=== PATIENT | male | born 1970 | race American Indian/Alaskan Native ===

== ENCOUNTER 2017-10-26 08:22 | Day surgery (SDC) | payer MEDICAID ==
[~2017-10-26 08:22] MED LIST: NACL 0.9% 1000 ML 1,000 ML IV SCH
--- NOTE | 2017-10-26 09:19 | Short Stay Summary ---
Short Stay Documentation Date of service: 10/26/17 Narrative H&P: 47 year old for colonoscopy for high risk screening in view of family history of colon polyps. No prior colonoscopy. Additional complaint: abdominal pain not explained by 09/21/17 CT scan. - History Principal diagnosis: high risk colon screening, family history colon polyps Past Medical History: GERD, other (cerebral palsy) Past Surgical History: total hip replacement - Allergies and Medications Current Medications: Allergies No Known Allergies Allergy (Verified 10/23/17 16:48) Home Medications Medication Instructions Recorded Confirmed Last Taken Type RX: Omeprazole 40 mg PO DAILY 10/23/17 10/26/17 3 Days Ago History ~10/23/17 40 Ranitidine HCl 150 mg PO BID 10/26/17 10/26/17 10/23/17 History Active Medications Sodium Chloride (Nacl 0.9% 1000 Ml) 1,000 mls @ 50 mls/hr IV DIRECT DUGLAS Last Admin: 10/26/17 08:57 Dose: 50 mls/hr - Physical exam General appearance: no acute distress, well-nourished HEENT: PERRLA, EOMI Lungs: Clear to auscultation Heart: Normal S1, Normal S2 Gastrointestinal: normal Extremities: abnormal (flexion contractures, muscle wasting) Neurological: Normal speech (mild dysarthria) - Hospital course Hospital course: Uneventful colonoscopy - Disposition Condition at discharge: Good Disposition: DC-01 TO HOME OR SELFCARE - Discharge Diagnoses (1) Family history of colonic polyps Status: Acute (2) Internal hemorrhoids Status: Acute Short Stay Discharge Plan Activity: other (no driving today) Diet: other (resume usual) Additional Instructions: Repeat colonoscopy in 5 years for screening Follow up with: DONTRELL WILDER MD [Primary Care Provider] - 7 Days
[2017-10-26] MEDS ORDERED: DIPRIVAN 10 MG/ML IV ONE (10:18)
[2017-10-26] MEDS ORDERED: XYLOCAINE 1% 20 mL ONE (10:18)
--- NOTE | 2017-10-26 10:22 | Anesthesia Consultation ---
Anesthesia Consult and Med Hx Date of service: 10/26/17 - Airway Anesthetic Teeth Evaluation: Good ROM Head & Neck: Adequate Mental/Hyoid Distance: Adequate Mallampati Class: Class IV Intubation Access Assessment: Possibly Difficult - Pulmonary Exam CTA: Yes - Cardiac Exam Cardiac Exam: RRR - Pre-Operative Health Status ASA Pre-Surgery Classification: ASA2 Proposed Anesthetic Plan: MAC - Central Nervous System Hx Neuromuscular Disorder: Yes (Cerebral Palsy ) - Gastrointestinal Hx Gastroesophageal Reflux Disease: Yes
--- NOTE | 2017-10-26 10:23 | Anesthesia Day of Surgery ---
Anesthesia Day of Surgery - Day of Surgery Patient Examined: Yes Patient H&P Reviewed: Yes Patient is NPO: Yes
--- NOTE | 2017-10-26 11:12 | Operative Report ---
Operative Report Operative Report: Date: 10/26/2017 Preprocedure diagnosis: Family history of colon polyps, incidental note of occasional abdominal pain Postprocedure diagnosis: Internal hemorrhoids Procedure: Colonoscopy Medication: Monitored anesthesia care Complication: None Blood loss: None Procedure: The indications, techniques, potential complications and alternative methods of diagnosis had been discussed with him in detail prior to the date of the exam and were reviewed again with him on the day of the exam. His questions were encouraged and answered and he granted consent. He was placed in the left lateral decubitus position and medicated by anesthesia services. The anal sphincter was digitally dilated. The digital exam was unremarkable. The tip of a [employer] videocolonoscope was inserted through the anal sphincter and into the rectal vault. It was then advanced proximally under continuous visualization of the lumen to the cecum. Passage through the proximal colon required extrinsic abdominal pressure and placement in supine position. Overall the prep was adequate. Lavage was employed as needed. No pathology was seen in the cecum. The appendiceal orifice and ileocecal valve appeared normal. From the cecum, the instrument was slowly withdrawn with careful circumferential examination of the colonic mucosa. No pathology was found in the ascending colon, hepatic flexure, transverse colon, splenic flexure, descending colon, sigmoid colon or the rectum from the forward view. Retroflexion in the rectum revealed internal hemorrhoids. The instrument was straightened and withdrawn. The procedure was very well tolerated. Postprocedure he was monitored in the recovery area of the GI lab to ensure stability prior to his release. See the outpatient records for details regarding instructions to patient, medications and plans for follow-up. Endoscopic assessment: 1. Internal hemorrhoids. 2. Tortuous proximal colon. 3. Otherwise normal colonoscopy to the cecum. No polyps found. Recommend repeat in 5 years in view of family history. Kamran Hicks M.D. Dictated 10/26/2017 at 11:04 AM
[2017-10-26] MEDS ORDERED: WATER FOR IRRIG STERILE IR ONE (11:36)
[2017-10-26 11:54] VITALS: BP 122/71
== END 2017-10-26 08:23 | disposition home or self-care (01) ==
LOC: GIO 08:22
PROVIDERS: ATTEND Internal Medicine Gastroenterology
DX: K63.89 Other specified diseases of intestine (principal); K64.8 Other hemorrhoids; K21.9 Gastro-esophageal reflux disease without esophagitis; G80.9 Cerebral palsy, unspecified; Z83.71 Family history of colonic polyps
CPT/HCPCS: 45378; J2704; J7030

== ENCOUNTER 2020-12-30 20:40 | Emergency (ER) | payer MEDICARE ==
[2020-12-30] MEDS ORDERED: ONDANSETRON 4 MG/2 ML INJ IV ONE (20:56)
[2020-12-30] MEDS ORDERED: MORPHINE 4 MG/1 ML INJ IV ONE (20:56)
--- NOTE | 2020-12-30 20:58 | Emergency Department Report ---
ED Chest Pain HPI - General Stated Complaint: CP/SOB Time Seen by Provider: 12/30/20 20:55 Source: patient, EMS - History of Present Illness Initial Comments: Patient is 50 years old male with history of cerebral palsy. No other medical problem according to EMS report. Patient brought to the emergency room via EMS from home for evaluation of sudden onset of left sided chest pain. EMS reported that patient was diaphoretic. EMS reported that patient initial oxygen saturation was 84% on room air improved to 95% on a nonrebreather. Patient is holding his left sided chest. EMS gave patient aspirin and nitroglycerin with s ome improvement of his pain. MD Complaint: chest pain - Related Data Home Medications Medication Instructions Recorded Confirmed Last Taken Omeprazole 40 mg PO DAILY 10/23/17 10/26/17 3 Days Ago ~10/23/17 40 Ranitidine HCl 150 mg PO BID 10/26/17 10/26/17 10/23/17 Allergies Allergy/AdvReac Type Severity Reaction Status Date / Time No Known Allergies Allergy Verified 10/23/17 16:48 Heart Score - HEART Score History: Moderately suspicious EKG: Non-specific Age: 45-65 Risk factors: No known risk factors Troponin: < normal limit HEART Score: 3 - EKG Read Time Time EKG Completed: 21:07 EKG Read Time: 21:07 - Critical Actions Critical Actions: 0-3 pts:0.9-1.7%risk of adverse cardiac event.Candidate for discharge ED Review of Systems ROS: Stated complaint: CP/SOB Other details as noted in HPI Comment: All other systems reviewed and negative Constitutional: denies: chills, fever Respiratory: denies: cough, shortness of breath, SOB with exertion, SOB at rest Cardiovascular: chest pain. denies: palpitations, dyspnea on exertion Gastrointestinal: denies: abdominal pain Neurological: denies: headache, weakness ED Past Medical Hx - Past Medical History Hx GERD: Yes - Medications Home Medications: Home Medications Medication Instructions Recorded Confirmed Last Taken Type Omeprazole 40 mg PO DAILY 10/23/17 10/26/17 3 Days Ago History ~10/23/17 40 Ranitidine HCl 150 mg PO BID 10/26/17 10/26/17 10/23/17 History ED Physical Exam - General General appearance: alert, in distress - Head Head exam: Present: atraumatic, normocephalic, normal inspection - Eye Eye exam: Present: normal appearance - ENT ENT exam: Present: normal exam, normal orophraynx, mucous membranes moist - Neck Neck exam: Present: normal inspection, full ROM. Absent: tenderness, meningismus - Respiratory Respiratory exam: Present: normal lung sounds bilaterally - Cardiovascular Cardiovascular Exam: Present: regular rate, normal rhythm, normal heart sounds - GI/Abdominal GI/Abdominal exam: Present: soft, normal bowel sounds. Absent: distended, te nderness, guarding, rebound, rigid, organomegaly, mass, bruit, pulsatile mass, hernia - Extremities Exam Extremities exam: Present: normal capillary refill - Neurological Exam Neurological exam: Present: alert, CN II-XII intact - Psychiatric Psychiatric exam: Present: anxious - Skin Skin exam: Present: warm ED Course Vital Signs 12/30/20 12/30/20 12/30/20 21:16 21:46 22:16 Temperature Pulse Rate 110 H 111 H 109 H Respiratory 25 H 23 22 Rate Blood Pressure 132/70 125/73 120/68 O2 Sat by Pulse 99 98 97 Oximetry 12/31/20 12/31/20 12/31/20 00:00 00:16 00:18 Temperature Pulse Rate Respiratory Rate Blood Pressure 131/71 125/72 125/72 O2 Sat by Pulse 100 99 98 Oximetry 12/31/20 12/31/20 00:30 00:35 Temperature 98.6 F Pulse Rate Respiratory Rate Blood Pressure 125/72 O2 Sat by Pulse 98 Oximetry ED Medical Decision Making - Lab Data Result diagrams: 12/30/20 21:21 12/30/20 21:21 - EKG Data -: EKG Interpreted by Vt EKG shows normal: sinus rhythm Rate: normal - EKG Data Interpretation: no acute changes - Radiology Data Radiology results: report reviewed - Medical Decision Making Patient is 50 years old male with history of cerebral palsy. No other medical problem according to EMS report. Patient brought to the emergency room via EMS from home for evaluation of sudden onset of left sided chest pain. EMS reported that patient was diaphoretic. EMS reported that patient initial oxygen saturation was 84% on room air improved to 95% on a nonrebreather. Patient is holding his left sided chest. EMS gave patient aspirin and nitroglycerin with some improvement of his pain. Patient received morphine and Zofran. Patient stated that he is feeling better. Labs reviewed and showed leukocytosis of 15,000. Troponin is unremarkable. CT of the chest showed a severe pneumomediastinum extending from the neck down to the lower mediastinum also showing abnormal dilatation of the esophagus concerning for esophageal perforation. Patient received Zosyn. I discussed the patient with Dr. Ayden Amaya, thoracic surgeon at [facility]. He accepted the patient to be transfer to [place] for further management. I informed patient mother Jose Go about him and that he has been diagnosed with esophageal perforation and his condition is critical. I informed her that he has been that has accepted to be transferred to [facility]. She agreed with that. Critical Care Time: Yes Critical care time in (mins) excluding proc time.: 45 Critical care attestation.: If time is entered above; I have spent that time in minutes in the direct care of this critically ill patient, excluding procedure time. ED Disposition Clinical Impression: Esophageal perforation, Acute chest pain Disposition: 04 INTERMEDIATE CARE FACILITY Is pt being admited?: No Condition: Stable Instructions: Chest Pain (ED) Referrals: PRIMARY CARE, [Primary Care Provider] - 3-5 Days
--- NOTE | 2020-12-30 21:26 | XRay Report ---
CHEST 1 VIEW INDICATION / CLINICAL INFORMATION: Chest Pain STUDY TIME: 2118 COMPARISON: None available. FINDINGS: SUPPORT DEVICES: None HEART / MEDIASTINUM: No significant abnormality. LUNGS / PLEURA: Patient is moderately rotated. Mild elevation the left hemidiaphragm is seen. Mildly congested appearance is seen. Increased interstitial markings are seen which are mildly patchy but co uld represent pulmonary edema and/or developing interstitial pneumonitis. Follow-up is recommended. N o pneumothorax. ADDITIONAL FINDINGS: No significant additional findings. Signer Name: Sourav Manzo MD Signed: 12/30/2020 9:22 PM Workstation Name: [id number]
[2020-12-30 21:56] LABS: Hemoglobin 11.8 gm/dl (11.8-15.2); Mean Corpuscular HGB Conc 31 % (32-34); Platelet Count 183 K/mm3 (140-440); Red Blood Count 5.46 M/mm3 (3.65-5.03)
[2020-12-30 22:04] LABS: Blood Urea Nitrogen 16 mg/dL (9-20); Calcium 8.8 mg/dL (8.4-10.2); Hemolysis Index 1
[2020-12-30 22:10] LABS: Mean Corpuscular Volume 70 fl (84-94); Red Cell Distribution Width 21.3 % (13.2-15.2)
[2020-12-30 22:13] LABS: BUN/Creatinine Ratio 23
[2020-12-30 22:24] LABS: INR 1.17 (0.87-1.13)
[2020-12-30 22:25] LABS: Partial Thromboplastin Time 27.4 Sec. (24.2-36.6)
[2020-12-30 22:46] LABS: Anisocytosis 1+; Hypochromasia 1+; Total Cells Counted 100
--- NOTE | 2020-12-31 00:13 | Cat Scan Report ---
CTA CHEST WITH IV CONTRAST INDICATION: CHEST PAIN WITH DYSPNEA. TECHNIQUE: Axial CT images were obtained through the chest after injection of 100 mL IV contrast. 3 plane MIP re constructions were produced. All CT scans at this location are performed using CT dose reduction for ALARA by means of automated exposure control. Severely limited exam secondary to poor technique/respi ratory motion artifact. COMPARISON: None available. FINDINGS: PULMONARY ARTERIES: Cannot be well assessed given severe respiratory motion artifact. No obvious cent ral PTE is identified.. AORTA AND ARTERIES: No acute abnormality. MEDIASTINUM: Moderate to severe pneumomediastinum. Prominent left axillary adenopathy. The distal and mid thoracic esophagus appears thickened and abnormal. This is difficult to well evaluate given the degree of motion artifact. LUNGS: Moderate to large bilateral pleural effusions. Patchy bibasilar airspace consolidation. No def inite pneumothorax is appreciated within the limits of the exam. ADDITIONAL FINDINGS: None. UPPER ABDOMEN: No acute findings. BONES: No significant osseous abnormality. IMPRESSION: Severe pneumomediastinum with gas extending from the lower neck to the lower mediastinum. The esophag us distally appears moderately dilated and abnormal. Esophageal perforation cannot be excluded. Sever e left axillary adenopathy. Signer Name: Brad Palacios MD Signed: 12/31/2020 12:09 AM Workstation Name: [id number]
[2020-12-31] MEDS ORDERED: PIPERACILLIN/TAZOBACTAM 3.375 3.375 GM/50 ML BAG IV ONE (00:30)
[2020-12-31 00:51] LABS: Bacteria,Urine 1+ /HPF (Negative); Bilirubin,Urine NEG (Negative); Blood,Urine MOD (Negative); Color,Urine Amber (Yellow); Mucus,Urine 3+ /HPF; Urobilinogen,Urine < 2.0 mg/dL (<2.0)
[2020-12-31] MEDS ORDERED: SODIUM CHLORIDE 0.9% 1000 ML 1,000 ML ONE (01:02)
[2020-12-31] MEDS ORDERED: SODIUM CHLORIDE 0.9% 1000 ML 1,000 ML IV ONE (01:06)
[2020-12-31 01:09] VITALS: BP 131/71
--- NOTE | 2021-01-02 13:24 | Electrocardiograph Report ---
[facility] Test Date: 2020-12-30 Test Time: 21:07:58 Pat Name: TOMY IRAHETA Department: Room: Gender: M [employer]: ARTI : 1970 Requested By: PALLAVI JEWELL Order Number: [id number] Reading MD: Rut Cherry Measurements Intervals [place] Rate: 107 P: 11 CA: 151 QRS: 72 QRSD: 83 T: 74 QT: 312 QTc: 415 Interpretive Statements Sinus tachycardia No previous ECG available for comparison Electronically Signed On 01-02-2021 13:24:00 EDT by Rut Cherry
== END 2020-12-31 01:42 ==
LOC: ED 20:40
DX: K22.3 Perforation of esophagus (principal); R07.89 Other chest pain; Z79.899 Other long term (current) drug therapy
CPT/HCPCS: 36415; 71045; 71275; 80048; 81001; 83690; 83880; 84484; 85007; 85025; 85379; 85610; 85730; 87040; 93005; 96365; 96375; 99291; J2270; J2405; J2543; J7030; Q9967